=== PATIENT | male | born 1985 | race Caucasian/White ===

== ENCOUNTER 2024-07-12 18:46 | Emergency (ER) | payer SELFPAY | END 2024-07-12 20:00 | disposition left against medical advice (07) | LOC: MW.ED 18:46 | DX: Z53.21 Procedure and treatment not carried out due to patient leaving prior to being seen by health care provider (principal) ==

== ENCOUNTER 2024-07-23 22:33 | Emergency (ER) | payer SELFPAY | END 2024-07-23 23:51 | LOC: MW.ED 22:33 | DX: S21.139A Puncture wound without foreign body of unspecified front wall of thorax without penetration into thoracic cavity, initial encounter (principal); Y35.831A Legal intervention involving a conducted energy device, law enforcement official injured, initial encounter | CPT/HCPCS: 93005; 93010; 99284 ==